=== PATIENT | female | born 1965 | race Caucasian/White ===

== ENCOUNTER → 2016-11-01 | Outpatient (CLI) | payer BC ==
[~2016-11-01] MED LIST: ACYC400T PO; DICL50TA2 PO; MELA3TAB2 PO
--- NOTE | 2016-11-01 14:57 | KCIC ---
Indication: Right neck lump. Sonographic interrogation of the area of lump in the right neck was performed. There is a lymph node in the right neck measuring 2.7 x 0.7 cm. A second lymph node measures 1.9 x 0.5 cm. There are also lymph nodes in the right submandibular region, approximately 0.9 cm in size. No other abnormality is seen. IMPRESSION: Enlarged right neck lymph nodes, as described and indeterminate. Electronically signed by: Isidoro Fisher MD (11/01/2016 2:54 PM) [id number]
== END | disposition home or self-care (01) ==
LOC: KCIC US 14:18
PROVIDERS: ATTEND Family Medicine
DX: R22.1 Localized swelling, mass and lump, neck (principal)
CPT/HCPCS: 76536

== ENCOUNTER → 2016-12-03 | Outpatient (CLI) | payer BC ==
--- NOTE | 2016-12-03 16:54 | KCIC ---
Bilateral digital screening mammograms: Reason for examination: Routine screening. Comparison is made to previous studies dated 08/30/2015 and 08/06/2014. The skin and nipples show no abnormalities. No abnormal axillary lymph nodes are seen. Bilateral breast implants remain in place. The breast parenchyma shows scattered fibroglandular density. (Breast density: Category B.) There are no dominant masses, suspicious calcifications or architectural distortions. Impression: No evidence of malignancy. Recommend routine screening. BI-RADS Category 1: Negative. "Our facility is accredited by the [employer] Mammography [employer]." This patient's information has been entered into a reminder system for the patient to be notified with the results of her examination and a target date for the next mammogram. Electronically signed by: Sivan Mata MD (12/03/2016 4:51 PM) [id number]
== END | disposition home or self-care (01) ==
LOC: KCIC MAMMO 14:24
PROVIDERS: ATTEND Family Medicine
DX: Z12.31 Encounter for screening mammogram for malignant neoplasm of breast (principal)
CPT/HCPCS: G0202; 77067

== ENCOUNTER → 2018-05-07 | Outpatient (CLI) | payer BC ==
--- NOTE | 2018-05-12 15:12 | KCIC ---
BILATERAL SCREENING MAMMOGRAM History: Routine screening. Comparison: Bilateral mammogram 12/03/2016 and August 30, 2015. Technique: Routine bilateral digital mammogram views were obtained with and without implants displaced. Findings: Breast Tissue Density B : There are scattered areas of fibroglandular density. Redemonstrated bilateral intact retropectoral silicone breast implants. There is a tiny nodular asymmetry on the left CC implant displaced view that is slightly medial to the nipple line at posterior depth. There is an asymmetric density in the subareolar upper left breast on the left MLO implant displaced view that is similar to 2016 but increased from 2017. There are no dominant suspicious masses, suspicious microcalcifications, or architectural distortion. IMPRESSION: 1. Tiny nodular asymmetry on left CC implant displaced view slightly medial to the nipple line at posterior depth. Further mammographic evaluation likely not feasible due to location. Recommend left breast ultrasound. 2. Asymmetric density in the subareolar upper left breast. Recommend further evaluation with spot compression left MLOid view. BI-RADS Category 0: Incomplete: Need additional imaging evaluation. The images were reviewed with computer aided detection. Patient information is entered into the reminder system with a target due date for the next screening mammogram. Mammography is the most sensitive method for finding small breast cancers, but it does not detect them all and is not a substitute for careful clinical examination. A negative mammogram does not negate a clinically suspicious finding and should not result in delay in biopsying a clinically suspicious abnormality. "Our facility is accredited by the [employer] Mammography Program." Electronically signed by: Mani Cruz MD (05/08/2018 1:43 PM) [id number]
== END | disposition home or self-care (01) ==
LOC: KCIC MAMMO 12:22
PROVIDERS: ATTEND Family Medicine
DX: Z12.31 Encounter for screening mammogram for malignant neoplasm of breast (principal)
CPT/HCPCS: 77067

== ENCOUNTER → 2018-05-29 | Outpatient (CLI) | payer BC ==
--- NOTE | 2018-05-29 14:36 | KCIC ---
Left breast diagnostic digital mammograms: Reason for examination: Parenchymal density on screening mammogram. Comparison is made to mammographic exam dated 05/07/2018. Coned compression view was obtained anteriorly for evaluation of the parenchymal density in the subareolar area. With this additional views, there is some bandlike density which may represent a combination of ductal ectasia and superimposition of tissues. The suspicious nodule was not seen. IMPRESSION: Density in the subareolar position probably represents some ductal ectasia and superimposition of tissues. Ultrasound to follow. BI-RADS Category 0: Incomplete. Needs additional imaging evaluation. Left breast ultrasound: Left whole breast ultrasound including evaluation of all 4 quadrants and the retroareolar and axillary regions of the left breast was performed. Breast implant is present. In the 10:00 position 3 cm from the nipple, there is a small 4 mm hypoechoic fibrocystic type lesion rim calcification. In the 4:00 position 1 cm from the nipple, there is a hypoechoic 6 mm nodule in parallel orientation which has benign fibrocystic appearance. There is some ductal ectasia in the subareolar position. In the 5:00 position 1 cm from the nipple, there is a small 4 mm cystic-appearing lesion which may reflect some cystic ductal ectasia. No other focal lesions are seen. No abnormal appearing lymph nodes are seen in the axilla. IMPRESSION: Small benign-appearing cystic and fibrocystic type lesions in the left breast. No suspicious abnormality seen. Recommend 6 month follow-up with ultrasound. BI-RADS Category 3: Probably Benign. "Our facility is accredited by the [employer] Mammography Program." This patient's information has been entered into a reminder system for the patient to be notified with the results of her examination and a target date for the next mammogram. Electronically signed by: Sivan Mata MD (05/29/2018 2:31 PM) [id number]
== END | disposition home or self-care (01) ==
LOC: KCIC MAMMO 13:02
PROVIDERS: ATTEND Family Medicine
DX: R92.8 Other abnormal and inconclusive findings on diagnostic imaging of breast (principal)
CPT/HCPCS: 76641; 77065